=== PATIENT | female | born 1990 | race Caucasian/White ===

== ENCOUNTER 2017-03-12 14:56 | Emergency (ER) | payer BC, OTHER ==
--- OUTSIDE RECORDS SUMMARY | 2017-03-12 15:29 | XMS REPORT | Continuity of Care Document ---
:1990 Author Organization [facility] [place] [address] Care Team Providers Name Role Phone Didi Etienne Primary Care Provider [phone] Source Comments This disclosure is being made pursuant to the [employer] program and maynot contain all information available regarding this patient.[facility] Active Allergies and Adverse Reactions Allergen Noted Date Severity Reactions Comments Cephalexin 04/25/2015 High Hives Vomiting, wheezing, hives 20 minutes after taking cephalexin on 04/15/2015 Current Medications Be aware that medications may not be up to date as of this document. Alwaysverify current medications with the patient. Prescription Sig. Disp. Refills Start Date End Date Status escitalopram (LEXAPRO) Take one tab oral 90 tablet 0 08/03/2016 Active 10 MG tablet at bedtime hydrOXYzine (ATARAX) 10 Take 1 tablet by 90 tablet 0 08/03/2016 Active MG tablet mouth 3 (three) times daily as needed for Anxiety. Active Problems Problem Noted Date Atypical squamous cell changes of undetermined significance (ASCUS) on 2014 cervical cytology with positive high risk human papilloma virus (HPV) Anxiety state 07/20/2013 Overview: Overview: WERO BISHOP MD Mild dysplasia of cervix (CHARLENE I) 11/26/2012 Overview: Overview: GWENDOLYN GOODMAN MD Dysmenorrhea 05/24/2009 Overview: Overview: improved on OCPs, will continue GWENDOLYN GOODMAN MD Immunizations Name Dates Previously Given Next Due HPV Quadrivalent 11/19/2008,07/20/2008,05/20/2008 Tdap 06/06/2016 Social History Tobacco Use Types Packs/Day Years Used Date Never Smoker Smokeless Tobacco: Never Used Alcohol Use Drinks/Week oz/Week Comments Yes Last Filed Vital Signs Vital Sign Reading Time Taken Blood Pressure 120/80 08/03/2016 2:10 PM [employer] Pulse 84 08/03/2016 2:10 PM [employer] Temperature 36.2 C (97.1 F) 08/03/2016 2:10 PM [employer] Respiratory Rate 16 08/03/2016 2:10 PM [employer] Height 1.765 m (5' 9.5") 11/03/2015 3:00 PM [employer] Weight 101.515 kg (223 lb 12.8 oz) 08/03/2016 2:10 PM [employer] Body Mass Index 32.59 08/03/2016 2:10 PM [employer] Oxygen Saturation 97% 08/03/2016 2:10 PM [employer] Plan of Care Health Maintenance Due Date Last Done Comments Influenza Immunization (#1) 2016 Pap Smear 09/20/2018 09/20/2015, Additional history exists 01/10/2015, 07/05/2014 Tetanus/Pertussis (2 - Td) 06/06/2026 06/06/2016 Results from Last 3 Months Not on file Insurance Payer Benefit Plan / Subscriber ID Type Phone Address Group [facility] [id number] [phone] [id number] [place] [address] [facility] [id number] [phone] [address] [place] [phone] Home: [id number] [phone] DANICA THOMAS [id number] [facility] [employer] Employer Work: [address] [facility] [employer] [phone] [facility] [id number]
--- OUTSIDE RECORDS SUMMARY | 2017-03-12 15:29 | XMS REPORT | Summary of Care ---
:1990 Author Organization [facility] Address [address] [place] [address] Care Team Providers Name Role Phone Roger Elle John Primary Care Physician Encounter Date(s): 03/01/17 - 03/01/17 [facility], [address] [place], [place] [address] Discharge Disposition: 01 Discharged to Home or Self Care Attending Physician: Zoraida Morales DO Referring Physician: Zoraida Morales DO Vital Signs Most recent to oldest [Reference Range]: 1 Peripheral Pulse Rate [60-100 bpm] 84 bpm (03/01/17 8:57 AM) Blood Pressure [90-130/60-90 mmHg] 125/80mmHg (03/01/17 8:57 AM) Mean Arterial Pressure, Cuff 95 mmHg (03/01/17 8:57 AM) Most recent to oldest [Reference Range]: 1 Height/Length Measured 176 cm (03/01/17 8:57 AM) Weight Dosing 105.10 kg1 (03/01/17 9:08 AM) Weight Measured 105.1 kg (03/01/17 8:57 AM) BSA Measured 2.21 m2 (03/01/17 8:57 AM) Body Mass Index Measured 33.93 kg/m2 (03/01/17 8:57 AM) 1Result Comment: This result was because the dosing weight was either not entered or it is>30 days old. This result is based off: Weight Measured March 01, 2017 08:57:00 CDT by Karine Holly Problem List No data available for this section Allergies, Adverse Reactions, Alerts Substance Reaction Severity Status cephalexin anaphalxis shock Active Medications multivitamin 1 tab(s), Oral, Daily, 0 Refill(s), Start Date: 03/01/17 9:06:00 CDT Start Date: 03/01/17 Status: Ordered Results No data available for this section Immunizations No data available for this section Procedures Procedure Date Related Diagnosis Body Site Extraction of wisdom tooth Social History No data available for this section Assessment and Plan No data available for this section
--- NOTE | 2017-03-12 15:50 | ERNOTE ---
Upper Extremity HPI - General Extremities Pain Location: thumb: right Time Seen by Provider: 03/12/17 15:16 Source: patient Exam Limitations: no limitations - Immun/Allergies/Home Medications Immunizations: IMMUNIZATION HX Immunizations Up to Date Yes History of Influenza Vaccine Yes Hx Pneumococcal Vaccination No Allergies/Adverse Reactions: Allergies Allergy/AdvReac Type Severity Reaction Status Date / Time cephalexin Allergy Severe Anaphylaxis Verified 03/12/17 15:02 Home Medications: HOME MEDICATIONS NK [No Home Medication] 03/12/17 [Last Taken Unknown] - History of Present Illness Narrative: Patient presents with a small avulsion laceration of her right thumb. She rates the pain as moderate intensity and struggling because it keeps wanting to oozing blood. Occurred: just prior to arrival Location of Incident: home Severity: moderate Method of Injury: Reports: incised Other Injuries: Reports: none Review of Systems - Review of Systems Constitutional: Present: See HPI EYE: Present: no symptoms reported ENT: Present: no symptoms reported Respiratory: Present: no symptoms reported Cardiology: Present: no symptoms reported Gastrointestinal/Abdominal: Present: no symptoms reported Genitourinary: Present: no symptoms reported Musculoskeletal: Present: See HPI Skin: Present: no symptoms reported Neurological: Present: no symptoms reported Endocrine: Present: no symptoms reported Hematologic/Lymphatic: Present: no symptoms reported Psych: Present: no symptoms reported - Patient's Past Medical History Patient History - Medical: No pertinent hx Patient History - Cardiac/Respiratory: No pertinent hx Patient History - Cancer: No Hx of Cancer Patient History - Surgical Procedures: Other Patient History - Other: None - Social History Living Situations: home Abuse History: No History of abuse Psych History: No pertinent hx Smoking Status: Never smoker Have you smoked in the past 12 months: No Do you dip or chew tobacco: No Alcohol Use: none Drug Use: none - Immunizations Immunizations Up to Date: Yes Hx Pneumococcal Vaccination: No History of Influenza Vaccine: Yes Physical Exam - Physical Exam General Appearance: Present: wd/wn, alert, moderate distress Eye Exam: Normal inspection: bilateral, PERRL: bilateral Ears, Nose, Throat: Present: normal ENT inspection, H, normal pharynx Neck: Present: normal inspection, nontender Respiratory: Present: no respiratory distress, normal breath sounds, no accessory muscle use, chest nontender, lungs clear Cardiovascular/Chest: Present: regular rate, rhythm, no murmur, normal peripheral pulses Gastrointestinal/Abdominal: Present: normal bowel sounds, nontender, nondistended, soft, no organomegaly Rectal Exam: Present: deferred Back Exam: Present: normal inspection, normal range of motion Extremity Exam: Present: normal range of motion, no edema, other - avulsion laceration to the right distal thumb Neurological Exam: Present: alert, oriented, normal mood/affect Skin Exam: Present: normal color, warm/dry Lymphatic Exam: Present: no adenopathy ED Progress - Vital Signs Patient's Vital Signs:: I have reviewed the patient's vital signs. Vital Signs: Vital Signs 03/12/17 03/12/17 15:00 15:11 Temperature 37.2 C 37.2 C Pulse Rate 86 86 Respiratory 16 16 Rate Blood Pressure 124/89 124/89 O2 Sat by Pulse 100 100 Oximetry - Progress/Reassessment Chief Complaint: Upper Extremity Injury/Problem Progress:: Improved Plan - Plan Plan: We applied silver nitrate to the area of avulsion laceration and were able to accomplish hemostasis. Patient was offered pain meds but she declined and she states that her tetanus is up-to-date. Departure Clinical Impression: Laceration - Departure Disposition: Home self-care Condition: Good Instructions: Laceration Care, Adult, [id number] Referrals: Elle Duran MD [Primary Care Provider] -
[2017-03-12 15:54] VITALS: BP 131/68
== END 2017-03-12 15:56 | disposition home or self-care (01) ==
LOC: ER 14:56
DX: S61.011A Laceration without foreign body of right thumb without damage to nail, initial encounter (principal); W45.8XXA Other foreign body or object entering through skin, initial encounter